=== PATIENT | female | born 1995 | race Caucasian/White ===

== ENCOUNTER 2018-07-14 07:37 | Emergency (ER) | payer MEDICAID ==
[~2018-07-14] VITALS: Ht 154.9 cm; Wt 51.8 kg
[2018-07-14] MEDS ORDERED: IBUPROFEN 400 MG TABLET PO ONE (08:15)
[2018-07-14 09:46] VITALS: BP 118/78
== END 2018-07-14 09:47 | disposition home or self-care (01) ==
LOC: EMS 07:40
DX: S13.4XXA Sprain of ligaments of cervical spine, initial encounter (principal); R07.89 Other chest pain; V89.2XXA Person injured in unspecified motor-vehicle accident, traffic, initial encounter; Y93.89 Activity, other specified; Y92.89 Other specified places as the place of occurrence of the external cause; Y99.8 Other external cause status
CPT/HCPCS: 72125